=== PATIENT | male | born 1965 | race Two or more races ===

== ENCOUNTER 2023-04-17 13:27 | Emergency (ER) | payer OTHER ==
[~2023-04-17] VITALS: Ht 172.7 cm; Wt 52.2 kg
[2023-04-17 17:50] LABS: HEMATOCRIT 35.4 % (39.0-48.0); MEAN CELL VOLUME 90.7 fL (80.0-100.00); MEAN CORPUSCULAR HEMOGLOBIN 30.6 pg (27.00-32.0); MEAN CORPUSCULAR HGB CONC 33.8 g/dl (32.0-36.0); PLATELET COUNT 190 K/uL (150-450); RED BLOOD COUNT 3.91 M/uL (4.00-6.00); RED CELL DISTRIBUTION WIDTH 14.1 % (11.5-14.5)
[2023-04-17] MEDS ORDERED: DICLOFENAC SODI75 MG PO (18:32)
[2023-04-17] MEDS ORDERED: AMOX-CLAV 875-1 EAC1 PO (18:32)
== END 2023-04-17 18:38 | disposition home or self-care (01) ==
LOC: ER 13:28
PROVIDERS: Nurse Practitioner Family
DX: L03.115 Cellulitis of right lower limb (principal)